=== PATIENT | female | born 1980 | race Caucasian/White ===

== ENCOUNTER 2022-02-19 19:04 | Emergency (ER) | payer MEDICAID, SELFPAY ==
[2022-02-19 19:23] VITALS: BP 148/101; PULSE 84; RESP 16; TEMP 36.4; O2SAT 99
--- NOTE | 2022-02-19 19:52 | CRLHL7_ITS ---
For Patients: As a result of the Cures Act, medical imaging exams and procedure reports are released immediately into your electronic medical record. You may view this report before your referring provider. If you have questions, please contact your health care provider. INDICATION: Pain. TECHNIQUE: Left tibia and fibula, 2 views. COMPARISON: None. FINDINGS: No acute fracture identified. The knee and ankle appear normally aligned. Soft tissues are unremarkable. IMPRESSION: No acute findings. Dictated by Gloria Thomas MD @ 02/19/2022 9:00:44 PM (Electronically Signed)
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
[2022-02-19 21:46] VITALS: BP 135/78; PULSE 84; RESP 16; TEMP 36.4; O2SAT 99
--- NOTE | 2022-02-20 00:11 | ED.NURSE ---
Ortho will contact pt for appointment - 02/24/22 @1252 with Elisa.
== END 2022-02-19 21:48 | disposition home or self-care (01) ==
LOC: ED 21:46
PROVIDERS: Emergency Provider Emergency Medicine Emergency Medical Services
DX: M79.605 Pain in left leg (principal)
CPT/HCPCS: 73590; 99283; 99284

== ENCOUNTER 2023-03-17 19:54 | Outpatient (CLI) | payer BC, SELFPAY | END 2023-03-17 19:55 | disposition home or self-care (01) | PROVIDERS: Visit Provider Family Medicine | DX: R10.9 Unspecified abdominal pain (principal) | CPT/HCPCS: A0425; A0427 ==

== ENCOUNTER 2023-09-04 10:15 | Outpatient (RCR) | payer BC, SELFPAY | END 2023-11-21 11:31 | disposition home or self-care (01) | PROVIDERS: Visit Provider Student in an Organized Health Care Education/Training Program | DX: R29.898 Other symptoms and signs involving the musculoskeletal system (principal); R26.81 Unsteadiness on feet; R29.3 Abnormal posture; R53.83 Other fatigue; Z72.3 Lack of physical exercise; Z51.89 Encounter for other specified aftercare | CPT/HCPCS: 97110; 97116; 97163; 97535 ==

== ENCOUNTER 2024-11-03 10:58 | Emergency (ER) | payer BC, SELFPAY ==
--- OUTSIDE RECORDS SUMMARY | 2024-11-03 11:00 | XMS_ITS | Clinical Summary ---
Author Organization [email or web address] Address [address] [place] [address] Care Team Providers Care Oval Or Circular Glass Cutter Name Role Phone Vasile Burnette MD Unavailable Negra Kaye RN Unavailable Nhan Cristobal MD Primary Care P rovider Allergies Active Allergy Reactions Criticality Noted Date Comments Chlorpromazine Hallucinations Medium 01/29/2004 Lamotrigine Rash High 07/01/2012 Lamictal Pepper (Genus Capsicum) Shortness Of Breath,Itching,Palpita tions,Agitation,Chest Pain,Dizziness,GI Upset 01/28/2024 [place]ol[place] peppers Prochlorperazine Other - Describe In Comment Field,*Unknown,Rash High 07/01/2012 Veins on fire Veins on fire Compazine - pain is reaction Ragweed Dyspnea High 11/25/2020 Rudd Butter Nausea And Vomiting,Rash 12/26/2021 Tree Nuts Other - Describe In Comment Field Low 11/25/2020 WALNUTS only-itchy throat, swollen lips nausea Unlisted Allergen (Include Detail In Comments) Agitation,Contact Dermatitis,Dizziness,G I Upset,Headache,Itching ,Nausea Only,Palpitations,Shor tness Of Breath 11/19/2023 Medications turmeric/turmeric ext/pepr ext (turmeric-turmeric ext-pepper) 500-3 mg cap Take 2 Capsules by mouth. Active acetaminophen (TYLENOL EXTRA STRGTH) 500 mg tablet Take 1,000 mg by mouth every 6 hours if needed. Active naproxen (ALEVE) 220 mg tablet Take 440 mg by mouth. Active ondansetron (ZOFRAN ODT) 4 mg disintegrating tabletIndications: Nausea Place 1 Tablet (4 mg) on the tongue every 8 hours if needed for Nausea/Vomiting. 10 Tablet 03/18/20 23 Active loratadine (CLARITIN) 10 mg tabletIndications: Non-recurrent acute suppurative otitis media of right ear without spontaneous rupture of tympanic membrane Take 1 Tablet (10 mg) by mouth once daily. 30 Tablet 06/08/20 23 Active ibuprofen (ADVIL; MOTRIN) 200 mg tablet Take 200 mg by mouth every 6 hours. Active blood-glucose meterIndications:T ype 2 diabetes mellitus without complication, without long-term current use of insulin (HC) Dispense meter, test strips, lancets covered by pt ins. E11.65 NIDDM type II, uncontrolled - Test 2 times/day. Reason: High A1C 1 Each 3 11/29/19 24 Active pen needle (Maria Guadalupe Pen Needle) 32 gauge x 5/32 (disposable insulin pen needle)Indications :Type 2 diabetes mellitus without complication, without long-term current use of insulin (HC) Inject subcutaneous. Remove the 2 covers on the insulin pen needle before administering insulin dose. 100 Each 3 04/04/20 24 Active blood sugar diagnostic (Blood Glucose Test) stripIndications:T ype 2 diabetes mellitus without complication, without long-term current use of insulin (HC) Dispense meter, test strips, lancets covered by pt ins. E11.65 NIDDM type II, uncontrolled - Test 2 times/day. Reason: High A1C 200 Each 3 04/04/20 24 Active lancetsIndications :Type 2 diabetes mellitus without complication, without long-term current use of insulin (HC) Dispense meter, test strips, lancets covered by pt ins. E11.65 NIDDM type II, uncontrolled - Test 2 times/day. Reason: High A1C 200 Each 3 04/04/20 24 Active Cymbalta 30 mg Delayed-release capsuleIndications :PTSD (post-traumatic stress disorder) Take 1 Capsule (30 mg) by mouth once daily. 30 Capsule 1 04/08/20 24 Active cyclobenzaprine (FLEXERIL) 10 mg tabletIndications: Pain of right upper extremity Take 1 Tablet (10 mg) by mouth 3 times daily if needed for Muscle Spasm. 15 Tablet 04/08/20 24 Active lidocaine 4 % topical patchIndications:P ain of right upper extremity Apply to intact skin to cover most painful area for max 12hr per 24hr period. 10 Patch 04/08/20 24 Active hydrOXYzine HCL (ATARAX) 25 mg tabletIndications: Anxiety Take 1/2-1 tablet (12.5-25mg) up to twice a day as needed for anxiety and/or sleep 60 Tablet 1 05/08/20 24 Active albuterol HFA (PRO-AIR; VENTOLIN; PROVENTIL) 90 mcg/actuation inhalerIndications :Mild intermittent asthma without complication (HC) Inhale 1-2 Puffs by mouth every 4 hours if needed for Shortness Of Breath or Wheezing. 6.7 g 2 05/14/20 24 Active Ventolin HFA 90 mcg/actuation inhalerIndications :Mild intermittent asthma without complication (HC) Inhale 2 Puffs by mouth 4 times daily if needed for Shortness Of Breath. 6.7 g 2 05/14/20 24 Active diclofenac topical (VOLTAREN) 1 % gelIndications:Sub deltoid bursitis of right shoulder joint Apply 2 gm to affected area three times daily as needed for pain 100 g 2 07/14/20 24 Active tirzepatide (MOUNJARO) 12.5 mg/0.5 mL penIndications:Typ e 2 diabetes mellitus without complication, without long-term current use of insulin (HC),BMI 50.0-59.9, adult (HC) Inject 12.5 mg subcutaneous once weekly. 3 mL 07/23/20 24 Active tirzepatide (MOUNJARO) 15 mg/0.5 mL penIndications:Typ e 2 diabetes mellitus without complication, without long-term current use of insulin (HC),BMI 50.0-59.9, adult (HC) Inject 15 mg subcutaneous once weekly. 6 mL 09/15/19 25 Active famotidine (PEPCID) 40 mg tablet TAKE 1 TABLET BY MOUTH ONCE DAILY WITH MELOXICAM 08/12/19 Active meloxicam 15 mg tablet TAKE 1 TABLET BY MOUTH ONCE DAILY WITH PEPCID/FAMOTIDINE 08/12/19 Active Active Problems Problem Noted Date Diagnosed Date Tendinosis of right rotator cuff 08/25/2024 Elevated LFTs 08/25/2024 Overview (08/25/2024): Hepatic steatosis seen on CT imaging 2022. Leg swelling 08/25/2024 BMI 50.0-59.9, adult 08/25/2024 Mild intermittent asthma without complication Conductive hearing loss, bilateral 10/08/2023 Diabetic polyneuropathy asso ciated with type 2 diabetes mellitus 10/08/2023 Dyslipidemia due to type 2 diabetes mellitus Assessment & Plan (12/28/2022 12:28 PM CDT): Chart update only. MALDONADO Mota .................... 12/28/2022 12:28 PM Bipolar affective disorder, remission status uns pecified 09/26/2022 Assessment & Plan (09/26/2022 2:27 PM TILE MACHINE OPERATOR): Chart update only. Sickle cell trait 09/05/2021 Irritable bowel syndrome 09/05/2021 Type 2 diabetes mellitus wit h neurologic complication, without long-term current use of insulin 05/23/2019 Assessment & Plan (09/26/2022 2:27 PM TILE MACHINE OPERATOR): Chart update only. 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 MALDONADO Mota .................... 08/18/2023 11:58 AM Assessment & Plan (09/26/2022 2:27 PM TILE MACHINE OPERATOR): Chart update only. 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 Letter sent.) 08/26/2024 E-Visit [facility] [address] [place] [address] Antwan Ramirez MD Injection 08/25/2024 10:25 AM TILE MACHINE OPERATOR Office Visit [facility] [address] [place] [address] Nhan Cristobal MD Results (MRI results ) 08/24/2024 Travel 08/18/2024 11:15 AM TILE MACHINE OPERATOR Ancillary Procedure [facility] [address] [facility] [address] [place] [address] 08/18/2024 Travel 08/11/2024 Telephone [facility] [address] [place] [address] Nhan Cristobal MD Appointment Request from Last 3 Months Family History Medical History Relation Name Comments Bilateral breast cancer Mother Relation Name Status Comments Mother Social History Tobacco Use Types Packs/Day Years Used Date Smoking Tobacco: Former Cigarettes Q uit: 2017 Smokeless Tobacco: Never Tobacco Cessation:Counseling Given: Yes Alcohol Use Standard Drinks/Week Comments Yes 0 (1 standard drink = 0.6 oz pur e alcohol) holidays; 01/28/2024 PHQ-2 Answer Date Recorded PHQ-2 TOTAL SCORE 3 05/08/2024 Social Connections Answer Date Recorded Do you often feel lonely or isolated from those around you? 0 12/03/2023 Alcohol Use Answer Date Recorded How often do you have a drink containing alcohol ? 1 01/28/2024 Average Number of Drinks Not on file 024 Frequency of Binge Drinking Not on file 01/05 Financial Resource Strain Answer Date R ecorded Difficulty of Paying Living Expenses 2 12/03/2023 Difficulty of Paying Living Expenses 1 12/03/2023 Food Insecurity Answer Date Recorded Do you worry your food will run out before you are able to buy more? 1 12/03/2023 Transportation Needs Answer Date Record ed Does lack of transportation keep you from medica l appointments? 1 12/03/2023 Does lack of transportation keep you from work, meetings or getting things that you need? 2 12/03/2023 Housing Stability Answer Date Recorded What is your housing situation today? 1 12/03/2023 Interpersonal Safety Answer Date Record ed Are you being hit, kicked, p ushed or yelled at (see row info)? No 06/17/2024 Interpersonal Safety Abuse 12 - 18 Not on file 06/17/2024 Interpersonal Safety Ambulatory Vulnerability No t on file 06/17/2024 Utilities Answer Date Recorded Do you have trouble paying f or utilities (for example, heat, electricity, water, phone)? 2 12/03/2023 Comments No Sex and Gender Information Value Date Recorded Sex Assigned at Female 10/02/2022 7:15 AM TILE MACHINE OPERATOR Legal Sex Female 9:45 AM TILE MACHINE OPERATOR Gender Identity Female 10/02/2022 7:15 AM TILE MACHINE OPERATOR Sexual Orientation Bisexual 10/02/2022 7: 15 AM TILE MACHINE OPERATOR Obstetrics History Comments Reports 8 pregnancies x 4 4 miscarriages, no intervention needed Last Filed Vital Signs Vital Sign Reading Time Taken Comments Blood Pressure 134/85 08/25/2024 10:25 AM TILE MACHINE OPERATOR Pulse 111 08/25/2024 10:25 AM TILE MACHINE OPERATOR Temperature 36.8 C (98.2 F) 07/14/2024 10:41 AM TILE MACHINE OPERATOR Respiratory Rate 18 06/23/2024 3:03 PM TILE MACHINE OPERATOR Oxygen Saturation 98% 08/25/2024 10: 25 AM TILE MACHINE OPERATOR Inhaled Oxygen Concentration - - Weight 163.9 kg (361 lb 4.8 oz) 025 10:25 AM TILE MACHINE OPERATOR Height 167.6 cm (5' 6) 07/14/2024 10:4 1 AM TILE MACHINE OPERATOR Body Mass Index 58.32 07/14/2024 10:41 AM TILE MACHINE OPERATOR Plan of Treatment Health Maintenance Due Date Last Done Comments Tdap 1992 HIV for age 15-65 1996 Hepatitis B series for Diabe umm (1 of 3 - 19+ 3-dose series) 2000 Pneumococcal series for age 6-49 (1 of 2 - PCV) 2000 Tetanus booster 2001 Pap test for age 21-65 2002 COVID-19 vaccine series (2023- season) 2024 Influenza Vaccine (#1) 2024 Depression screening for age 12+ 05/12/2025 05/12/2024, 05/08/2024, 04/09/2024, Additional history exists BMI (ht and wt on same day) for age 18+ 07/14/2025 07/14/2024, 12/03/2023, 09/05/2022 Hepatitis C screening for ag e 18-79 Completed 09/05/2022 Procedures Procedure Name Priority Date/Time Associated Diagnosis Comments MR SHOULDER RIGHT WO Routine 08/18/2024 11:53 AM TILE MACHINE OPERATOR Chronic right shoulder pain Weakness of right shoulder LC HCV ANTIBODY RFX TO QUANT PCR Routine 09/05/2022 11:56 AM TILE MACHINE OPERATOR Elevated liver transaminase level from Last 3 Months or Most Recently Relevant to Health Maintenance Results * MR SHOULDER RIGHT WO (08/18/2024 11:53 AM TILE MACHINE OPERATOR) Anatomical Region Laterality Modality SHOULDER R Magnetic Resonan ce 08/18/2024 3:49 PM TILE MACHINE OPERATOR Impressions 08/18/2024 3:49 PM TILE MACHINE OPERATOR 1. [id number]-vfxaetfq distal supraspinatus and infraspinatus tendinosis. Tiny focus of low-grade closed interstitial partial-thickness tearing of the supraspinatus tendon more posteriorly. No high-grade tendon tear. 2. Mild to moderate distal subscapularis tendinosis. 3. Degenerative tearing of the posterior superior and superior labrum. Changes extend to the region of biceps anchor. Mild tendinosis proximal intra-articular long head of biceps tendon. 4. Mild subacromial-subdeltoid bursal edema. 5. Lateral downward sloping of the acromion. 6. Mild AC joint arthrosis. Dictated by Corbin Garay MD @ 08/18/2024 3:49:07 PM (Electronically Signed) Narrative 08/18/2024 3:49 PM TILE MACHINE OPERATOR For Patients: As a result of the Cures Act, medical imaging exams and procedure reports are released immediately into your electronic medical record. You may view this report before your referring provider. If you have questions, please contact your health care provider. CLINICAL INDICATION: Chronic right shoulder pain. Weakness. COMPARISON IMAGING STUDIES: 04/08/2024. TECHNICAL: Non-contrast MRI of the right shoulder. Axial, sagittal oblique and coronal oblique T1, PD, PD FS, T2 and T2 FS images. 1.5 Kyra MR scanner. FINDINGS: GLENOHUMERAL JOINT: Effusion: Quantity of joint fluid within normal limits. Humeral Head Articular Cartilage: Maintained. Glenoid Articular Cartilage: Maintained. Alignment: Maintained. Capsule: No generalized capsular edema. OSSEOUS STRUCTURES: No fracture or marrow replacement process. CORACOACROMIAL ARCH: Acromial Morphology: Type 2 acromial morphology. There is lateral downward sloping of the acromion. No os acromiale. Lateral acromial thickness is 7 mm. Acromiohumeral Interval: At its narrowest, the interval measures 7 mm. Coracohumeral Interval: At its narrowest, the coracohumeral interval measures 12 mm. Coracoid index is 7 mm. ACROMIOCLAVICULAR JOINT REGION: Mild AC joint arthrosis with mild osteophyte formation involving the inferior aspect of the lateral clavicle. No AC joint widening or malalignment. Coracoclavicular ligament intact. BURSAE: Mild subacromial subdeltoid bursal edema. ROTATOR CUFF TENDONS AND MUSCLES AND DELTOID: Supraspinatus and Infraspinatus: Duut-of-neqnhynf distal supraspinatus and infraspinatus tendinosis. On coronal oblique PD fat-sat image number 12 of series 7, there is a tiny focus of low-grade closed interstitial partial-thickness tearing of the supraspinatus tendon more posteriorly. No high-grade tendon tear or muscle atrophy. Teres Minor: Moderate fatty infiltration of the teres minor muscle with an intact distal tendon. Subscapularis: Mild to moderate subscapularis tendinosis. No tendon tear or muscle atrophy. Deltoid: Maintained. BICEPS TENDON, LONG HEAD: Mild tendinosis of the proximal most intra-articular long head of the biceps tendon. No subluxation or dislocation of tendon from bicipital groove. GLENOID LABRUM: There is tearing of the posterior superior and superior glenoid labrum. This is noted on coronal oblique PD fat-sat images number 12 through 17 of series 7. Tearing also apparent on axial PD fat sat image number 15 of series 5. Changes do extend to the region of the biceps anchor. OTHER FINDINGS: There is no abnormality within the suprascapular or spinoglenoid notches nor within the quadrilateral space. No axillary adenopathy or mass. Procedure Note Corbin Garay MD - 08/18/2024 For Patients: As a result of the 21st Century Cures Act, medical imagingexams and procedure reports are released immediately into your electronicmedical record. You may view this report before your referring provider.If you have questions, please contact your health care provider. CLINICAL INDICATION: Chronic right shoulder pain. Weakness. COMPARISON IMAGING STUDIES: 04/08/2024. TECHNICAL: Non-contrast MRI of the right shoulder. Axial, sagittal oblique andcoronal oblique T1, PD, PD FS, T2 and T2 FS images. 1.5 [facility]. FINDINGS: GLENOHUMERAL JOINT: Effusion: Quantity of joint fluid within normal limits. Humeral Head Articular Cartilage: Maintained. Glenoid Articular Cartilage: Maintained. Alignment: Maintained. Capsule: No generalized capsular edema. OSSEOUS STRUCTURES: No fracture or marrow replacement process. CORACOACROMIAL ARCH: Acromial Morphology: Type 2 acromial morphology. There is lateraldownward sloping of the acromion. No os acromiale. Lateral acromialthickness is 7 mm. Acromiohumeral Interval: At its narrowest, the interval measures 7 mm. Coracohumeral Interval: At its narrowest, the coracohumeral intervalmeasures 12 mm. Coracoid index is 7 mm. ACROMIOCLAVICULAR JOINT REGION: Mild AC joint arthrosis with mild osteophyte formation involving theinferior aspect of the lateral clavicle. No AC joint widening ormalalignment. Coracoclavicular ligament intact. BURSAE: Mild subacromial subdeltoid bursal edema. ROTATOR CUFF TENDONS AND MUSCLES AND DELTOID: Supraspinatus and Infraspinatus: Sgpo-uc-vjtunrmi distal supraspinatus andinfraspinatus tendinosis. On coronal oblique PD fat-sat image number 12 ofseries 7, there is a tiny focus of low-grade closed interstitialpartial-thickness tearing of the supraspinatus tendon more posteriorly. Nohigh-grade tendon tear or muscle atrophy. Teres Minor: Moderate fatty infiltration of the teres minor muscle with anintact distal tendon. Subscapularis: Mild to moderate subscapularis tendinosis. No tendon tearor muscle atrophy. Deltoid: Maintained. BICEPS TENDON, LONG HEAD: Mild tendinosis of the proximal most intra-articular long head of thebiceps tendon. No subluxation or dislocation of tendon from bicipitalgroove. GLENOID LABRUM: There is tearing of the posterior superior and superior glenoid labrum.This is noted on coronal oblique PD fat-sat images number 12 through 17 ofseries 7. Tearing also apparent on axial PD fat sat image number 15 ofseries 5. Changes do extend to the region of the biceps anchor. OTHER FINDINGS: There is no abnormality within the suprascapular or spinoglenoid notchesnor within the quadrilateral space. No axillary adenopathy or mass. IMPRESSION: 1. Tfqy-tf-imodzvah distal supraspinatus and infraspinatus tendinosis.Tiny focus of low-grade closed interstitial partial-thickness tearing ofthe supraspinatus tendon more posteriorly. No high-grade tendon tear. 2. Mild to moderate distal subscapularis tendinosis. 3. Degenerative tearing of the posterior superior and superior labrum.Changes extend to the region of biceps anchor. Mild tendinosis proximalintra-articular long head of biceps tendon. 4. Mild subacromial-subdeltoid bursal edema. 5. Lateral downward sloping of the acromion. 6. Mild AC joint arthrosis. Dictated by Corbin Garay MD @ 08/18/2024 3:49:07 PM (Electronically Signed) Nhan Cristobal MD MR Final Result * LC HCV ANTIBODY RFX TO QUANT PCR (09/05/2022 11:56 AM TILE MACHINE OPERATOR) HCV Ab <0.1 0.0 - 0.9 s/co ratio 09/07/2022 10:07 PM TILE MACHINE OPERATOR [facility] Blood BLOOD SPECIMEN / Unknown Venipuncture / Unknown 09/05/2022 11:56 AM TILE MACHINE OPERATOR 09/05/2022 11:57 AM TILE MACHINE OPERATOR Narrative [facility] - 09/07/2022 10:07 PM TILE MACHINE OPERATOR Performed at: [address] [place] [id number] [employer] Folder: Shekhar Whiting MD, Phone: [phone] us [facility] Final Res ult [facility] [address] [place], [place] [id number], from Last 3 Months or Most Recently Relevant to Health Maintenance Insurance [facility] Care Teams Oval Or Circular Glass Cutter Relationship Specialty Start Date End Date Nhan Cristobal MD [address] [place], [place] [address] PCP - General Family Practice 07/23/24 Vasile Burnette MD [address] [place] [id number] Endocrinology 12/04/23 Negra Kaye, MANGO [address] [place] [id number] Pharmacy Intake Technician Registered Nurse 12/11/23
[2024-11-03 11:17] VITALS: BP 120/78; PULSE 94; RESP 18; TEMP 36.6; O2SAT 96; BMI 55.9
--- NOTE | 2024-11-03 12:45 | CRLHL7_ITS ---
For Patients: As a result of the Century Cures Act, medical imaging exams and procedure reports are released immediately into your electronic medical record. You may view this report before your referring provider. If you have questions, please contact your health care provider. INDICATION: Left lower quadrant abdominal pain, nausea, and vomiting COMPARISON: None. TECHNIQUE: CT of the abdomen and pelvis with intravenous contrast (150 milliliters Isovue 370). FINDINGS: There is quantum mottle artifact on this examination due to body habitus. Lung bases: No pleural effusion. Liver: Nodular hepatic contour with relative hypertrophy of the left hepatic lobe concerning for cirrhosis. No focal suspicious hepatic lesions are identified on this single contrast phase examination. Gallbladder and biliary tree: Surgically absent gallbladder. Slight fullness of the extrahepatic and central intrahepatic biliary tree is probably within normal limits for the post cholecystectomy state. Spleen: Mild splenomegaly. Pancreas: Normal. Adrenal glands: Normal. Kidneys and ureters: No hydroureteronephrosis. No suspicious renal lesions are identified. Bladder: Unremarkable CT appearance. Visualized reproductive organs: Unremarkable CT appearance. Gastrointestinal tract: No focal abnormally dilated loops of bowel. Normal appendix. Peritoneal cavity: Trace pelvic free fluid. Lymph nodes: Mildly enlarged right upper abdominal quadrant lymph nodes measuring up to 13 millimeters at the ratna hepatis (2/37). Vessels: No abdominal aortic aneurysm. Abdominal and pelvic wall: 7.8 centimeter fat containing periumbilical hernia. Bones: There are osseous degenerative changes. Slight anterior vertebral body wedging most conspicuous at the inferior thoracic spine. IMPRESSION: 1. No acute findings in the abdomen or pelvis. 2. Cirrhotic hepatic morphology with mild splenomegaly. 3. Mildly enlarged right upper abdominal quadrant lymph nodes, possibly reactive in the context of cirrhosis. 4. Periumbilical fat containing hernia measuring 7.8 centimeters. Please note that all CT scans at this facility use dose modulation, iterative reconstruction, and/or weight-based dosing when appropriate to reduce radiation dose to as low as reasonably achievable. Dictated by Guillermo Escobedo MD @ 11/03/2024 2:28:37 PM (Electronically Signed)
--- NOTE | 2024-11-03 12:49 | ED.ABDPAIN ---
HPI - Abdominal Pain General Chief Complaint: Abdominal Pain Stated Complaint: severe left stomach pain-triage sent in Time Seen by Provider: 11/03/24 12:23 History of Present Illness HPI narrative: This 44-year-old female comes in reporting left lower quadrant abdominal pain that began yesterday. She had some associated nausea with vomiting. She states that the pain was crampy yesterday but is more constant today. She did have some yogurt after vomiting last night and states that she had severe pain in her left lower quadrant afterwards. She called into the nurse line and was instructed to come to the emergency department which she did not do last night but does so today. She arrives here with normal vital signs. She states that she has history of fibromyalgia and polycystic ovarian syndrome. Related Data Home Medications ?Medication ?Instructions ?Recorded ?Confirmed albuterol sulfate 90 mcg/actuation 1 - 2 puff inhalation Q4H PRN 11/03/24 11/03/24 aerosol inhaler (Ventolin HFA) wheezing duloxetine 30 mg capsule,delayed 30 mg PO DAILY 11/03/24 11/03/24 release (Cymbalta) meloxicam 15 mg tablet 15 mg PO DAILY 11/03/24 11/03/24 tirzepatide 15 mg/0.5 mL 15 mg subcut 11/03/24 subcutaneous pen injector (Adan) Previous Rx's ?Medication ?Instructions ?Recorded cephalexin 500 mg capsule 500 mg PO TID 7 days #21 caps 11/03/24 Allergies Allergy/AdvReac Type Severity Reaction Status Date / Time chlorpromazine (From Allergy Intermediate hallucinati Verified 11/03/24 14:11 Thorazine) ons prochlorperazine (From Allergy Intermediate fire in Verified 11/03/24 14:11 Compazine) veins lomictal Allergy Mild rash Uncoded 11/03/24 14:11 Review of Systems Status of ROS Reports: 10 or more systems reviewed and unremarkable except as noted in History and below Narrative Constitutional: No fevers, no weight gain or loss. Eyes: No discharge. No vision changes. HENT: No congestion, no sore throat, no ear pain. Cardiovascular: No chest pain, no palpitations. Respiratory: No shortness of breath, no wheezes, no cough. Gastrointestinal: Left lower quadrant abdominal pain with nausea and some vomiting. Genitourinary: No dysuria, no hematuria. Musculoskeletal: Normal range of motion. Skin: No rashes, no pruritis. Neurological: No dizziness, weakness, sensory change, speech change. Endo/Heme/Allergies: No bruising or bleeding. No polydipsia. Pysch: no suicidality, no anxiety, no insomnia. All other systems reviewed and are negative. [facility] Social History (Updated 02/19/22 @ 21:21 by Froylan Alberts MD) Smoking Status: Former smoker What tobacco products do you use: cigarettes Smoking quit date/years: <= 15 years ago Do you use any of these nicotine containing products: None Second hand tobacco smoke exposure: No How often do you have a drink containing alcohol: never How often do you have six or more drinks on one occasion: Never AUDIT-C Alcohol total score: 0 Non-prescribed substance use: denies use service: No Exam Narrative: Exam Narrative: Constitutional: Well-developed, well-nourished, no acute distress. Morbidly obese. HEENT: Normocephalic, atraumatic. Neck: Normal range of motion. Nontender. Supple. Heart: Regular. No murmurs. Normal rate. Intact distal pulses. Lungs: Clear to auscultation. No chest discomfort. No wheezes, rhonchi, or rales. Abdomen: Normal bowel sounds. Diffuse tenderness in the left lower quadrant. No rebound tenderness. Genitalia: Deferred. Back: No midline tenderness. Normal range of motion. Extremities: Normal range of motion. No injury. Skin: Intact. No rash. Warm. No erythema or pallor. Neurologic: No altered sensation. No weakness. Alert and oriented. Psychiatric: No suicidality. No anxiety or depression. No insomnia. Nursing notes and vitals signs are reviewed. Const: Vital Signs, click to edit/add: Vital Signs - 24 hr 11/03/24 11:17 Temperature 97.9 F Pulse Rate [Pulse Oximeter] 94 Respiratory Rate 18 Blood Pressure [Le ft Forearm] 120/78 Pulse Oximetry 96 Oxygen Delivery Me thod Room Air Course Vital Signs Vital signs: Initial Vital Signs Temperature 97.9 F 11/03/24 11:17 Temperature Source Temporal Artery Scan 11/03/24 11:17 Pulse Rate 94 11/03/24 11:17 Respiratory Rate 18 11/03/24 11:17 Blood Pressure 120/78 11/03/24 11:17 Blood Pressure Mean 92 11/03/24 11:17 Blood Pressure Position Sitting 11/03/24 11:17 Pulse Oximetry 96 11/03/24 11:17 Oxygen Delivery Method Room Air 11/03/24 11:17 Vital Signs Temperature 97.9 F 11/03/24 11:17 Pulse Rate 94 11/03/24 11:17 Respiratory Rate 18 11/03/24 11:17 Blood Pressure 120/78 11/03/24 11:17 Pulse Oximetry 96 11/03/24 11:17 Oxygen Delivery Method Room Air 11/03/24 11:17 Temperature 97.9 F 11/03/24 11:17 Pulse Rate 94 11/03/24 11:17 Respiratory Rate 18 11/03/24 11:17 Blood Pressure 120/78 11/03/24 11:17 Pulse Oximetry 96 11/03/24 11:17 Oxygen Delivery Method Room Air 11/03/24 11:17 MDM - Abdominal Pain MDM Narrative Medical decision making narrative: This patient comes in with left lower abdominal pain as described above. I did obtain a CT scan of her abdomen and pelvis and this shows no acute findings. Lab results also are reassuring except her urinalysis does show evidence of urinary tract infection. The patient has normal vital signs and her exam also is actually reassuring. She did receive a prescription for Keflex. She is taking meloxicam and famotidine and I encouraged her to continue these medicines and others as prescribed. She plans to follow-up with her GI specialist. Lab Data Labs: Lab Results 11/03/24 11/03/24 Range/Units 13:10 Unknown WBC 8.31 (4.50-11.00) K/uL RBC 4.92 (4.00-5.20) m/uL Hgb 13.3 (12.0-16.0) gm/dL Hct 40.4 (33.0-51.0) % MCV 82 (80-100) fL MCH 27 (26-34) pg MCHC 33 (32-36) gm/dL RDW Coeff of Lauren 13.9 (11.5-15.5) % Plt Count 220 (140-440) K/uL Neut % (Auto) 56.2 (42.0-72.0) % Lymph % (Auto) 35.4 (20-44) % King % (Auto) 7.5 (0.0-11.0) % Eos % (Auto) 0.4 (0.0-7.0) % Baso % (Auto) 0.4 (0.0-3.0) % Neut # (Auto) 4.68 (1.7-7.0) K/uL Lymph # (Auto) 2.94 H (0.90-2.90) K/uL King # (Auto) 0.60 (0.00-0.90) K/UL Eos # (Auto) 0.03 (0.00-0.50) K/uL Baso # (Auto) 0.03 (0.00-0.30) K/uL Abs Immat Gran (auto) 0.01 (0.00-0.30) K/uL Imm/Tot Granulo (auto) 0.1 % Sodium 136 (135-149) mmol/L Potassium 3.6 (3.6-5.1) mmol/L Chloride 103 (96-114) mmol/L Carbon Dioxide 27 (20-32) mmol/L Anion Gap 6 L (7-15) mEq/L BUN 12 (5-24) mg/dL Creatinine 0.6 (0.5-1.5) mg/dL Estimated Creat Clear 113.18 Estimated GFR 114 ml/min Glucose 118 H (60-115) mg/dL Calcium 8.4 (8.4-10.6) mg/dL Lipase 63 (23-300) U/L Urine Color Yellow (Yellow) Urine Appearance Clear (Clear) Urine pH 5.5 (5.0-8.5) Ur Specific [place] >= 1.030 (1.000-1.030) Urine Protein 1+ A (Negative) Urine Glucose (UA) Negative (Negative) Urine Ketones Trace A (Negative) Urine Blood Trace-intact A (Negative) Urine Nitrite Positive A (Negative) Urine Bilirubin 1+ A (Negative) Urine Urobilinogen 1.0 (0.2-1.0) Ur Leukocyte Esterase Trace A (Negative) Urine RBC 10-25 A (0-2) Urine WBC 10-25 A (0-5) Ur Squamous Epith Cells Moderate A (None-Few) Urine Bacteria Moderate A (None) Urine Mucus Moderate A (None) Imaging Data CT scan - abdomen: Radiologist's impression: 1. No acute findings in the abdomen or pelvis. 2. Cirrhotic hepatic morphology with mild splenomegaly. 3. Mildly enlarged right upper abdominal quadrant lymph nodes, possibly reactive in the context of cirrhosis. 4. Periumbilical fat containing hernia measuring 7.8 centimeters. Discharge Plan Discharge Clinical Impression: Urinary tract infection, Abdominal pain Patient Disposition: Home, Self-Care Condition: Stable Additional Instructions: Take medication as prescribed. Continue other medicines also as previously prescribed. Follow-up with senior corporate strategy manager or return if worsening. Prescriptions: New cephalexin 500 mg capsule 500 mg PO TID 7 Days Qty: 21 0RF No Action meloxicam 15 mg tablet 15 mg PO DAILY albuterol sulfate [Ventolin HFA] 90 mcg/actuation HFA aerosol inhaler 1 - 2 puff INHALATION Q4H PRN (Reason: wheezing) duloxetine [Cymbalta] 30 mg capsule,delayed release(DR/EC) 30 mg PO DAILY Mounjaro 15 mg/0.5 mL pen injector 15 mg subcut Follow Up/Referrals: Provider,Not a Local [Non-Staff] - Stand Alone Forms: MyHealth Info Instructions
--- OUTSIDE RECORDS SUMMARY | 2024-11-03 12:58 | XMS_ITS | Clinical Summary ---
Author Organization [employer] [facility] [employer] [facility] Address [address] [place] [address] Care Team Providers Care Senior Market Intelligence Consultant Name Role Phone Vasile Burnette MD Unavailable [...] 09/26/2022 Assessment & Plan (09/26/2022 2:27 PM GENERATION MANAGER): Chart update only. Sickle cell trait 09/05/2021 Irritable bowel syndrome 09/05/2021 Type 2 diabetes mellitus wit h neurologic complication, without long-term current use of insulin 05/23/2019 Assessment & Plan (09/26/2022 2:27 PM GENERATION MANAGER): Chart update only. 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 MALDONADO Mota .................... 08/18/2023 11:58 AM Assessment & Plan (09/26/2022 2:27 PM GENERATION MANAGER): Chart update only. 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 Letter sent.) 08/26/2024 E-Visit [facility] [address] [place] [address] Antwan Ramirez MD Injection 08/25/2024 10:25 AM GENERATION MANAGER Office Visit [facility] [address] [place] [address] Nhan Cristobal MD Results (MRI results ) 08/24/2024 Travel 08/18/2024 11:15 AM GENERATION MANAGER Ancillary Procedure [facility] [address] [facility] [address] [place] [address] 08/18/2024 Travel 08/11/2024 Telephone [facility] [address] [place] [address] Nhan Cristobal MD Appointment Request from Last [...] Sex Assigned at Female 10/02/2022 7:15 AM GENERATION MANAGER Legal Sex Female 9:45 AM GENERATION MANAGER Gender Identity Female 10/02/2022 7:15 AM GENERATION MANAGER Sexual Orientation Bisexual 10/02/2022 7: 15 AM GENERATION MANAGER Obstetrics History Comments Reports 8 pregnancies x 4 4 miscarriages, no intervention needed Last Filed Vital Signs Vital Sign Reading Time Taken Comments Blood Pressure 134/85 08/25/2024 10:25 AM GENERATION MANAGER Pulse 111 08/25/2024 10:25 AM GENERATION MANAGER Temperature 36.8 C (98.2 F) 07/14/2024 10:41 AM GENERATION MANAGER Respiratory Rate 18 06/23/2024 3:03 PM GENERATION MANAGER Oxygen Saturation 98% 08/25/2024 10: 25 AM GENERATION MANAGER Inhaled Oxygen Concentration - - Weight 163.9 kg (361 lb 4.8 oz) 025 10:25 AM GENERATION MANAGER Height 167.6 cm (5' 6) 07/14/2024 10:4 1 AM GENERATION MANAGER Body Mass Index 58.32 07/14/2024 10:41 AM GENERATION MANAGER Plan of Treatment Health Maintenance Due Date [...] SHOULDER RIGHT WO Routine 08/18/2024 11:53 AM GENERATION MANAGER Chronic right shoulder pain Weakness of right shoulder LC HCV ANTIBODY RFX TO QUANT PCR Routine 09/05/2022 11:56 AM GENERATION MANAGER Elevated liver transaminase level from Last 3 Months or Most Recently Relevant to Health Maintenance Results * MR SHOULDER RIGHT WO (08/18/2024 11:53 AM GENERATION MANAGER) Anatomical Region Laterality Modality SHOULDER R Magnetic Resonan ce 08/18/2024 3:49 PM GENERATION MANAGER Impressions 08/18/2024 3:49 PM GENERATION MANAGER 1. [id number] distal supraspinatus and infraspinatus tendinosis. Tiny focus [...] PM (Electronically Signed) Narrative 08/18/2024 3:49 PM GENERATION MANAGER For Patients: As a result of the [...] AND MUSCLES AND DELTOID: Supraspinatus and Infraspinatus: [id number] distal supraspinatus and infraspinatus tendinosis. On coronal [...] T2 and T2 FS images. 1.5 [facility] FINDINGS: GLENOHUMERAL JOINT: Effusion: Quantity of joint [...] AND MUSCLES AND DELTOID: Supraspinatus and Infraspinatus: [id number] distal supraspinatus andinfraspinatus tendinosis. On coronal oblique [...] No axillary adenopathy or mass. IMPRESSION: 1. Vpir-[id number] distal supraspinatus and infraspinatus tendinosis.Tiny focus of [...] RFX TO QUANT PCR (09/05/2022 11:56 AM GENERATION MANAGER) HCV Ab <0.1 0.0 - 0.9 s/co ratio 09/07/2022 10:07 PM GENERATION MANAGER [facility] Blood BLOOD SPECIMEN / Unknown Venipuncture / Unknown 09/05/2022 11:56 AM GENERATION MANAGER 09/05/2022 11:57 AM GENERATION MANAGER Narrative [facility]) - 09/07/2022 10:07 PM GENERATION MANAGER Performed at: [address] [place] [id number] Assistant Store Manager Operations: Shekhar Whiting MD, Phone: [phone] us [facility] Final Res ult [facility] ([facility]) [address] [place], [place] [id number], from Last 3 Months or Most Recently Relevant to Health Maintenance Insurance [facility] Care Teams Senior Market Intelligence Consultant Relationship Specialty Start Date End Date Nhan Cristobal MD [address] [place], [place] [address] PCP - General Family Practice 07/23/24 Vasile Burnette MD [address] [place] [id number] Endocrinology 12/04/23 Negra Kaye, MANGO [address] [place] [id number] Carbide Tool Die Maker Registered Nurse 12/11/23
[2024-11-03 13:27] LABS: Basophils Percent Auto 0.4 % (0.0-3.0); Eosinophils Percent Auto 0.4 % (0.0-7.0); Hematocrit 40.4 % (33.0-51.0); Hemoglobin* 13.3 gm/dL (12.0-16.0); Immature Granulocytes Pct Auto 0.1 %; Lymphocytes Absolute Auto 2.94 K/uL (0.90-2.90); Lymphocytes Percent Auto 35.4 % (20-44); Mean Corpuscular HGB Conc 33 gm/dL (32-36); Mean Corpuscular Hemoglobin 27 pg (26-34); Mean Corpuscular Volume 82 fL (80-100); Monocytes Percent Auto 7.5 % (0.0-11.0); Neutrophils Absolute Auto 4.68 K/uL (1.7-7.0); Neutrophils Percent Auto 56.2 % (42.0-72.0); Platelet Count* 220 K/uL (140-440); RDW Coefficient of Variation % 13.9 % (11.5-15.5); Red Blood Count 4.92 m/uL (4.00-5.20); White Blood Count* 8.31 K/uL (4.50-11.00)
[2024-11-03 13:28] LABS: Basophils Absolute Auto 0.03 K/uL (0.00-0.30); Eosinophils Absolute Auto 0.03 K/uL (0.00-0.50); Immature Granulocytes Abs Auto 0.01 K/uL (0.00-0.30)
[2024-11-03 13:31] LABS: Appearance Urine Clear (Clear); Bilirubin Urine 1+ (Negative); Blood Urine Trace-intact (Negative); Color Urine Yellow (Yellow); Glucose Urine Negative (Negative); Ketones Urine Trace (Negative); Leukocyte Esterase Urine Trace (Negative); Nitrite Urine Positive (Negative); Protein Urine 1+ (Negative); Specific Gravity Urine >= 1.030 (1.000-1.030); pH Urine 5.5 (5.0-8.5)
[2024-11-03 13:34] LABS: Slide Review Reflex No
[2024-11-03 13:37] LABS: Chloride* 103 mmol/L (96-114)
[2024-11-03 13:38] LABS: Potassium* 3.6 mmol/L (3.6-5.1); Sodium* 136 mmol/L (135-149)
[2024-11-03 13:40] LABS: Bacteria Urine Moderate; Mucus Urine Moderate; Squamous Epithelial Cell Urine Moderate (None-Few)
[2024-11-03 13:41] LABS: Anion Gap 6 mEq/L (7-15); Blood Urea Nitrogen* 12 mg/dL (5-24); Calcium* 8.4 mg/dL (8.4-10.6); Carbon Dioxide* 27 mmol/L (20-32); Creatinine* 0.6 mg/dL (0.5-1.5); Est. Creatinine Clearance* 113.18; Estimated Glomerular Filt Rate 114 ml/min; Glucose* 118 mg/dL (60-115); Lipase* 63 U/L (23-300)
== END 2024-11-03 15:28 | disposition home or self-care (01) ==
PROVIDERS: Emergency Provider Emergency Medicine Emergency Medical Services; PCP Student in an Organized Health Care Education/Training Program
DX: N39.0 Urinary tract infection, site not specified (principal)
CPT/HCPCS: 36415; 74177; 80048; 81001; 83690; 85025; 87086; 99284; Q9967

== ENCOUNTER 2024-11-20 12:42 | Outpatient (RCR) | payer BC, SELFPAY | END 2025-03-20 23:59 | disposition home or self-care (01) | PROVIDERS: Visit Provider Student in an Organized Health Care Education/Training Program | DX: M67.911 Unspecified disorder of synovium and tendon, right shoulder (principal); M47.812 Spondylosis without myelopathy or radiculopathy, cervical region; G89.29 Other chronic pain; M54.2 Cervicalgia; M79.604 Pain in right leg; M79.605 Pain in left leg; M79.601 Pain in right arm; M79.602 Pain in left arm; R53.83 Other fatigue; Z51.89 Encounter for other specified aftercare | CPT/HCPCS: 97110; 97140; 97162; 97164; 97165; 97535 ==